=== PATIENT | male | born 1995 | race Caucasian/White ===

== ENCOUNTER 2016-11-05 14:44 | Emergency (ER) | payer MEDICARE, OTHER ==
--- NOTE | 2016-11-05 15:24 | ED Physician Documentation ---
General Adult - HISTORIAN Historian: patient - HPI Chief Complaint: General Adult Onset: hours (yesterday) Further Comments: yes (Patient states that he has developed a lesion to the posterior aspect of his right ear. Has had some drainage from it.) - ROS CONST: denies: fever, chills - PAST HX Past History: other (Oppisitional defiant issues, alcohol syndrom, PTSD, depression, Ezcema, constipation, insomnia) Allergies/Adverse Reactions: Allergies Allergy/AdvReac Type Severity Reaction Status Date / Time No Known Allergies Allergy Verified 11/05/16 15:23 Home Medications: Ambulatory Orders Medication Instructions Recorded Cetirizine HCl [Zyrtec] 10 mg PO D 11/05/16 CloNIDine HCL [Catapress] 0.1 mg PO HS 11/05/16 Doxycycline Hyclate [Vibra-Tabs] 100 mg PO DAILY 11/05/16 Fluticasone Propionate [Flonase] 1 spray IN BID 11/05/16 Quetiapine Fumarate [Seroquel] 200 mg PO BID 11/05/16 Quetiapine Fumarate [Seroquel] 300 mg PO HS 11/05/16 Sertraline HCl [Zoloft] 100 mg PO DAILY 11/05/16 Topiramate [Topamax] 50 mg PO DAILY 11/05/16 - SOCIAL HX Smoking History: non-smoker, chew Alcohol Use: none Drug Use: none - FAMILY HX Family History: No - REVIEWED ASSESSMENTS Nursing Assessment Reviewed: Yes Vitals Reviewed: Yes General Adult Physical Exam - PHYSICAL EXAM GENERAL APPEARANCE: no distress RESPIRATORY: no resp distress, chest non-tender, breath sounds normal CVS: reg rate & rhythm, heart sounds normal, equal pulses, no murmur ABDOMEN: soft SKIN: other (cstic lesion 2.8 cm to posterior inferior right ear lobe. , eczema, ) NEURO: oriented X3, mood/affect nml Discharge Clincal Impression: Sebaceous cyst Additional Instructions: Dress wound at least once a day with triple antibiotic ointment, nonadherent pad and gauze. Have patient checked on or Monday to have the packing removed. Home Medications: Ambulatory Orders Cetirizine HCl [Zyrtec] 10 mg PO D 11/05/16 CloNIDine HCL [Catapress] 0.1 mg PO HS 11/05/16 Doxycycline Hyclate [Vibra-Tabs] 100 mg PO DAILY 11/05/16 Fluticasone Propionate [Flonase] 1 spray IN BID 11/05/16 Quetiapine Fumarate [Seroquel] 200 mg PO BID 11/05/16 Quetiapine Fumarate [Seroquel] 300 mg PO HS 11/05/16 Sertraline HCl [Zoloft] 100 mg PO DAILY 11/05/16 Topiramate [Topamax] 50 mg PO DAILY 11/05/16 Condition: Stable Disposition: 01 HOME, SELF-CARE Decision to Admit: NO Date of Decison to Admit: 11/05/16 Decision Time: 15:49
[2016-11-05] MEDS ORDERED: Lidocaine 1% 5ml(IM or SUTURE)(PAIN CLINIC) IJ ONE (15:30)
[2016-11-05 15:33] VITALS: BP 125/63
== END 2016-11-05 16:01 | disposition home or self-care (01) ==
LOC: ED 14:44
DX: L72.3 Sebaceous cyst (principal); F17.220 Nicotine dependence, chewing tobacco, uncomplicated
CPT/HCPCS: 87070; 99283

== ENCOUNTER 2016-11-14 20:43 | Emergency (ER) | payer OTHER ==
[2016-11-14] MEDS ORDERED: KETOROLAC TROMETHAMINE 60 MG/2 ML VIAL IM ONE (21:30)
--- NOTE | 2016-11-14 21:31 | ED Physician Documentation ---
General Adult - HISTORIAN Historian: patient - HPI Chief Complaint: General Adult Further Comments: yes (20 year old male patient brought in by caregivers for evaluation of chest pain. Caregivers state patient mowed for 2-3 hours today, came inside, sat in chair for 30 minutes then began complaining of chest pain. Patient denies any SOB, nausea or diaphoresis with the chest pain.) - ROS CONST: no problems EYES/ENT: none CVS/RESP: none GI/: none MS/SKIN/LYMPH: none NEURO/PSYCH: denies: headache - PAST HX Past History: other (Major depressive disorder, psychosis, oppositional defiant disorder, alcohol syndrome, ADHD, constipation.) Allergies/Adverse Reactions: Allergies Allergy/AdvReac Type Severity Reaction Status Date / Time No Known Allergies Allergy Verified 11/05/16 15:23 Home Medications: Ambulatory Orders Medication Instructions Recorded Cetirizine HCl [Zyrtec] 10 mg PO D 11/05/16 CloNIDine HCL [Catapress] 0.1 mg PO HS 11/05/16 Doxycycline Hyclate [Vibra-Tabs] 100 mg PO DAILY 11/05/16 Fluticasone Propionate [Flonase] 1 spray IN BID 11/05/16 Quetiapine Fumarate [Seroquel] 200 mg PO BID 11/05/16 Quetiapine Fumarate [Seroquel] 300 mg PO HS 11/05/16 Sertraline HCl [Zoloft] 100 mg PO DAILY 11/05/16 Topiramate [Topamax] 50 mg PO DAILY 11/05/16 - SOCIAL HX Smoking History: non-smoker - FAMILY HX Family History: No - VITAL SIGNS Vital Signs: Vital Signs Temp Pulse Resp BP Pulse Ox 125/63 11/05/16 16:01 - REVIEWED ASSESSMENTS Nursing Assessment Reviewed: Yes Vitals Reviewed: Yes Progress - EKG/XRAY/CT EKG: rhythm (SR, rate 93, no acute changes) ED Results Lab/Radiology - Orders Orders: ED Orders Category Date Time Status Ketorolac Tromethamine [Toradol] Med 11/14/16 21:30 Once 60 mg IM NOW ONE General Adult Physical Exam - PHYSICAL EXAM GENERAL APPEARANCE: mild distress EENT: eye inspection normal, BILL RESPIRATORY: no resp distress, breath sounds normal, other (left anterior chest wall pain with palpation) CVS: reg rate & rhythm, heart sounds normal, equal pulses, no murmur, no gallop , PMI nml, no JVD, no friction rub, 24 ABDOMEN: soft, no organomegaly, normal bowel sounds, no abdominal bruit, no distension SKIN: normal color, warm/dry, NR, INT, PAL, DR EXTREMITIES: non-tender, normal range of motion, no evidence of injury, no edema , J, 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 Return to ER if symptoms become worse Home Medications: Ambulatory Orders Cetirizine HCl [Zyrtec] 10 mg PO D 11/05/16 CloNIDine HCL [Catapress] 0.1 mg PO HS 11/05/16 Doxycycline Hyclate [Vibra-Tabs] 100 mg PO DAILY 11/05/16 Fluticasone Propionate [Flonase] 1 spray IN BID 11/05/16 Quetiapine Fumarate [Seroquel] 200 mg PO BID 11/05/16 Quetiapine Fumarate [Seroquel] 300 mg PO HS 11/05/16 Sertraline HCl [Zoloft] 100 mg PO DAILY 11/05/16 Topiramate [Topamax] 50 mg PO DAILY 11/05/16 Condition: Stable Disposition: 01 HOME, SELF-CARE Decision to Admit: NO Decision Time: 21:30
[2016-11-14 23:15] VITALS: BP 109/67
== END 2016-11-14 21:44 | disposition home or self-care (01) ==
LOC: ED 20:43
DX: R07.89 Other chest pain (principal)
CPT/HCPCS: 93005; J1885; 96372; 99283